=== PATIENT | male | born 1960 | race Hispanic/Latino ===

== ENCOUNTER 2023-08-22 11:53 | Emergency (ER) | payer SELFPAY ==
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
--- NOTE | 2023-08-22 12:34 | RAD REPORT ---
EXAM DESCRIPTION: RAD - Sacrum And Coccyx - 08/22/2023 12:24 pm CLINICAL HISTORY: PAIN COMPARISON: No comparisons FINDINGS/IMPRESSION: No acute fracture. No malalignment. Degenerative changes in the lower spine.
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
[2023-08-22 16:39] VITALS: BP 153/95; TEMP 97.6; O2SAT 97
== END 2023-08-22 13:15 | disposition home or self-care (01) ==
LOC: ER 11:53
DX: M54.50 Low back pain, unspecified (principal); M54.2 Cervicalgia; V49.49XA Driver injured in collision with other motor vehicles in traffic accident, initial encounter
CPT/HCPCS: 70450; 72125; 72220; 99283